=== PATIENT | male | born 1970 | race Caucasian/White ===

== ENCOUNTER 2021-11-04 16:00 | Emergency (ER) | payer SELFPAY ==
[2021-11-04] MEDS ORDERED: AMOX TR-K CLV1 EAC4 PO (20:49)
[2021-11-04] MEDS ORDERED: HYDROCODON-ACE1 EAC4 PO (20:54)
== END 2021-11-04 21:12 | disposition home or self-care (01) ==
LOC: ER1 16:00
DX: S81.852A Open bite, left lower leg, initial encounter (principal); S80.871A Other superficial bite, right lower leg, initial encounter; S61.253A Open bite of left middle finger without damage to nail, initial encounter; S60.572A Other superficial bite of hand of left hand, initial encounter; S60.571A Other superficial bite of hand of right hand, initial encounter; S01.81XA Laceration without foreign body of other part of head, initial encounter; S81.812A Laceration without foreign body, left lower leg, initial encounter; F17.200 Nicotine dependence, unspecified, uncomplicated; W54.0XXA Bitten by dog, initial encounter
CPT/HCPCS: 73590; 90471; 90715; 99283